=== PATIENT | female | born 1960 | race Caucasian/White ===

== ENCOUNTER 2020-03-18 18:05 | Inpatient (IN) | payer MEDICAID ==
[~2020-03-18] VITALS: Ht 162.6 cm; Wt 66.3 kg
--- NOTE | 2020-03-18 18:10 | NUR ---
PT SENT FROM [facility] FOR 2 DAY HX OF DIZZINESS AND WEAKNESS AFTER WOUND TO RIGHT HEEL HAD INCISION AND DRAINAGE ON MONDAY PER PT. PT ON ANTIBIOTICS THEN GOT RASH TO LEFT ARM. 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 PT ALSO RECEIVED 300 OF NS BY [employer] FOR REFRACTORY HYPOTENSION. DR. SAUNDERS AT BEDSIDE. PT ON MONITOR. PT REPORTS COUGH AND NASAL CONGESTION FOR ABOUT TWO DAYS BUT PT UNSURE OF EXACTLY WHEN HER RESPIRATORY SYMPTOMS STARTED. PT REPORTS, "LATELY, IT HAS BEEN A BLUR."
[2020-03-18] MEDS ORDERED: NOREPINEPHRINE 8 MG in SODIUM CHLORIDE 0.9% 242 ML IV PRN (18:27)
--- NOTE | 2020-03-18 18:30 | NUR ---
REPORT TO GUILLERMO DUDLEY AT BEDSIDE. PT MOVED TO TRAUMA 4 FOR CENTRAL LINE AND PRESSORS.
[2020-03-18] MEDS ORDERED: [UNRECOGNIZED DRUG - REMARK] PO (18:46)
--- NOTE | 2020-03-18 19:52 | NUR ---
pt resting comfortably in bed. pt remains axox4. levophed running per aug. pto ct now
--- NOTE | 2020-03-18 20:54 | NUR ---
PT RESTING COMFORTABLY AT THIS TIME. NO WANT OR NEEDS EXPRESSED. URINE OUTPUT OF STAY IS 500 ML
[2020-03-18 21:15] LABS: MICROSCOPIC NOT IND
--- NOTE | 2020-03-18 21:48 | NUR ---
IN ROOM TO START CENTRAL LINE. CONSENT SIGNED
[2020-03-18] MEDS ORDERED: BISACODYL 10 MG SUPP PR PRN (22:00)
[2020-03-18] MEDS ORDERED: ONDANSETRON ODT 4 MG PO PRN (22:00)
[2020-03-18] MEDS ORDERED: morphine SULFATE 10 MG/ML, 1ML IVPush PRN (22:00)
[2020-03-18] MEDS ORDERED: DOCUSATE 100 MG CAPSULE PO PRN (22:00)
[2020-03-18] MEDS ORDERED: POLYETHYLENE GLYCOL 17 GM PACKET PO PRN (22:00)
[2020-03-18] MEDS ORDERED: OXYcodone IR 5MG TABLET PO PRN (22:00)
[2020-03-18] MEDS: LACTATED RINGERS 1,000 ML IV SCH ×2 (22:00→22:30)
[2020-03-18] MEDS ORDERED: ONDANSETRON 2MG/ML, 2ML IVPush PRN (22:00)
[2020-03-18] MEDS ORDERED: PROMETHAZINE 25 MG/ML, 1ML IM PRN (22:00)
--- NOTE | 2020-03-18 22:05 | NUR ---
Note narda in EDM - 03/18/20 at 2206 by KENNY REPORT OF PT FROM LUIS ENRIQUE MARTÍNEZ AT AND ASSUMING CARE OF PT AT THIS TIME. PT IS SLEEPING IN [facility] AT THIS TIME; JANNETHN. PT VSS AT THIS TIME. PT HAS CALL LIGHT WITHIN REACH.
--- NOTE | 2020-03-18 22:06 | NUR ---
REPORT OF PT FROM LUIS ENRIQUE MARTÍNEZ AT AND ASSUMING CARE OF PT AT THIS TIME. PT IS SLEEPING IN [facility] AT THIS TIME; JANNETHN. PT VSS AT THIS TIME. PT HAS CALL LIGHT WITHIN REACH.
[2020-03-18] MEDS ORDERED: VANCOMYCIN PER PHARMACY MC PRN (22:30)
[2020-03-18] MEDS ORDERED: VANCOMYCIN PMX 1GM/200ML 200 ML IV ONE (22:30)
[2020-03-18] MEDS ORDERED: CEFTRIAXONE PMX 2GM/50ML 50 ML ONE (22:52)
--- NOTE | 2020-03-18 22:53 | NUR ---
IV FLUIDS INITIATED PER AUG. PT LEVOPHED DRIP MOVED TO CENTRAL LINE AFTER XRAY VERIFICATION OF CENTRAL LINE IN SVC. AWAITING LAB FOR BC X 2 PRIOR TO ABX ADMINISTRATION. PT SLEEPING IN [facility] AT THIS TIME WITH STABLE VS AND CALL LIGHT WITHIN REACH.
[2020-03-18] MEDS: CEFTRIAXONE PMX 2GM/50ML 50 ML IV SCH (23:08)
--- NOTE | 2020-03-18 23:08 | NUR ---
BLOOD CULTURES X 2 DRAWN BY LAB AT THIS TIME. IV ANTIBIOTICS INITIATED PER AUG. PT RESTING COMFORTABLY IN [facility] AT THIS TIME;
[2020-03-18 23:22] LABS: HCT (SEDRATE) 34.7 % (34.6-47.8)
[2020-03-18 23:45] LABS: C-REACTIVE PROTEIN, QUANT 5.8 mg/dL (0.02-0.49); FREE T4 (FREE THYROXINE) 0.86 ng/dL (0.76-1.46)
--- NOTE | 2020-03-19 00:18 | NUR ---
PT SLEEPING IN [facility] AT THIS TIME; NADElizabeth. VSS AND UPDATED IN EMR AT THIS TIME.
--- NOTE | 2020-03-19 01:30 | NUR ---
BREAK RN: REPORT FROM RUBY BETTS RESTING IN GURNEY WITH EYES CLOSED, APPEARS COMFORTABLE WITH NADN, BREATHING EQUAL AND UNLABORED, AND VSS AT THIS TIME
--- NOTE | 2020-03-19 02:07 | NUR ---
PT VS UPDATED IN EMR AT THIS TIME. PT VSS. PT IS SLEEPING IN [facility] AT THIS TIME; NADN. CALL LIGHT IS WITHIN REACH OF PT.
--- NOTE | 2020-03-19 03:34 | NUR ---
PT ASSISTED TO BSC WITH 2 RN'S. PT AMBULATES WITH SLOW AND SHUFFLING GAIT TO BSC AND PRODUCED A MODERATE, FORMED BROWN STOOL. PT CHANGED INTO HOSPITAL BED AT THIS TIME AND PROVIDED 30 ML OF WATER. PT PROVIDED EXTRA WARM BLANKET PER REQUEST AND IS RESTING COMFORTABLY IN [facility] AT THIS TIME. PT DENIES ANY OTHER NEEDS AND HAS CALL LIGHT WITHIN REACH.
[2020-03-19 05:00] LABS: ALANINE AMINOTRANSFERASE 22 U/L (12-78); ALBUMIN 2.5 g/dL (3.4-5.0); ANION GAP 8 mmol/L (5-15); CALCIUM 6.8 mg/dL (8.5-10.1); CHLORIDE 117 mmol/L (98-107); CREATININE 0.85 mg/dL (0.55-1.02)
[2020-03-19 05:03] LABS: ALKALINE PHOSPHATASE 38 U/L (45-117); BILIRUBIN,TOTAL 0.3 mg/dL (0.2-1.0); CHOL/HDL RATIO 3.4; CHOLESTEROL, TOTAL 144 mg/dL (140-239); HDL CHOL % 29 % (28-40); HDL CHOLESTEROL (DIRECT) 42 mg/dL (40-60); LDL CHOLESTEROL,CALCULATED 71 mg/dL (54-169); LDL/HDL RATIO 1.7 (0.5-3.0); TOTAL PROTEIN 5.6 g/dL (6.4-8.2); TRIGLYCERIDES 154 mg/dL (50-200); VLDL CHOLESTEROL 31 mg/dL (0-25)
[2020-03-19 05:21] LABS: BASOPHILS # (AUTO) 0.02 x10^3/uL (0-0.1); BASOPHILS % (AUTO) 1 % (0-1); EOSINOPHILS % (AUTO) 0 % (1-7); LYMPHOCYTES # (AUTO) 0.67 x10^3/uL (1-3.4); LYMPHOCYTES % (AUTO) 17 % (22-44); MD SCAN; MEAN CORPUSCULAR HEMOGLOBIN 30.2 pg (27.0-34.8); MEAN CORPUSCULAR HGB CONC 32.1 g/dL (32.4-35.8); MEAN PLATELET VOLUME 9.1 fL (7.4-10.4); MONOCYTES # (AUTO) 0.09 x10^3/uL (0.2-0.8); MONOCYTES % (AUTO) 2 % (2-9); NEUTROPHILS # (AUTO) 3.17 x10^3/uL (1.8-6.8); NEUTROPHILS % (AUTO) 80 % (42-75); PLATELET COUNT 86 x10^3/uL (130-400); RED BLOOD COUNT 3.81 x10^6/uL (3.82-5.3); RED CELL DISTRIBUTION WIDTH 14.7 % (9.6-15.2)
--- NOTE | 2020-03-19 06:20 | NUR ---
PT ASLEEP IN [facility] AT THIS TIME; NADN. 1600 TOTAL ML URINE WAS EMPTIED FROM [facility] CATHETHER. PT HAD A TOTAL OF 30 ML OF ORAL FLUIDS, 1250 ML IV FLUIDS ON THIS RN'S SHIFT.
--- NOTE | 2020-03-19 06:50 | NUR ---
PT ASLEEP IN [facility] AT THIS TIME; JANNETHN. PT VSS AND UPDATED IN EMR AT THIS TIME. DIET TRAY ORDERED FOR PT BREAKFAST. NEW ORDERS RECEIVED FOR MEDS AT THIS TIME.
[2020-03-19] MEDS ORDERED: CALCIUM CHLORIDE 27.2 MEQ in SODIUM CHLORIDE 0.9% 100 ML IV ONE (07:00)
[2020-03-19] MEDS ORDERED: MAGNESIUM SULFATE PMX 2GM/50ML 50 ML IV ONE (07:00)
[2020-03-19] MEDS ORDERED: MAGNESIUM SULFATE PMX 2GM/50ML 50 ML ONE (07:09)
[2020-03-19] MEDS ORDERED: HYDROCORTISONE 100 MG INJ. ONE (07:09)
[2020-03-19] MEDS: HYDROCORTISONE 100 MG INJ. IVPush SCH ×3 (07:11→23:40)
--- NOTE | 2020-03-19 07:24 | NUR ---
REPORT OF PT TO LUIS ENRIQUE DIANE AND LUIS ENRIQUE BOLES. ALL QUESTIONS ANSWERED. PT EDUCATED ON ROOM ASSINGMENT AND VERBALIZES UNDERSTANDING.
--- NOTE | 2020-03-19 07:30 | NUR ---
CALCIUM CHLORIDE REQUESTED FROM PHARMACY. REQUESTED TO BE SENT TO CCU.
[2020-03-19] MEDS ORDERED: PHARMACOKINETIC MONITORING MC PRN (08:30)
[2020-03-19] MEDS ORDERED: VANCOMYCIN 1,500 MG in SODIUM CHLORIDE 0.9% 250 ML IV ONE (09:00)
[2020-03-19] MEDS: PANTOPRAZOLE 40 MG IV IVPush SCH (09:24)
[2020-03-19 09:33] VITALS: BP 118/71
[2020-03-19] MEDS: ACETAMINOPHEN 325 MG TABLET PO PRN (09:58)
[2020-03-19] MEDS: METRONIDAZOLE PMX 500MG/100ML 100 ML IV SCH ×2 (13:22→21:30)
[2020-03-19 17:38] LABS: CLOSTRIDIUM DIFFICILE ANTIGEN NEGATIVE; CLOSTRIDIUM DIFFICILE TOXIN NEGATIVE (Negative)
[2020-03-19 18:15] VITALS: BP 106/65
[2020-03-19] MEDS: CEFTRIAXONE PMX 2GM/50ML 50 ML IV SCH (22:38)
[2020-03-20 02:19] VITALS: BP 114/68
[2020-03-20] MEDS ORDERED: VANCOMYCIN 1,200 MG in SODIUM CHLORIDE 0.9% 250 ML IV SCH (03:00)
[2020-03-20 05:03] LABS: % IRON SATURATION 57 % (20-55); ANION GAP 9 mmol/L (5-15); CALCIUM 7.5 mg/dL (8.5-10.1); CHLORIDE 116 mmol/L (98-107); CREATININE 0.62 mg/dL (0.55-1.02); D-DIMER (DIC) 1.07 ug/mlFEU (0.00-0.52); IRON LEVEL 95 mcg/dL (50-170); PROTIME 10.6 Seconds (9.6-11.5); TOTAL IRON BINDING CAPACITY 168 mcg/dL (250-450)
[2020-03-20] MEDS: METRONIDAZOLE PMX 500MG/100ML 100 ML IV SCH ×3 (05:08→20:44)
[2020-03-20 05:30] LABS: MEAN CORPUSCULAR HEMOGLOBIN 30.8 pg (27.0-34.8); MEAN CORPUSCULAR HGB CONC 32.8 g/dL (32.4-35.8); MEAN PLATELET VOLUME 9.3 fL (7.4-10.4); PLATELET COUNT 86 x10^3/uL (130-400); RED BLOOD COUNT 3.34 x10^6/uL (3.82-5.3); RED CELL DISTRIBUTION WIDTH 15.3 % (9.6-15.2)
[2020-03-20 05:31] LABS: BASOPHILS # (AUTO) 0.01 x10^3/uL (0-0.1); BASOPHILS % (AUTO) 1 % (0-1); EOSINOPHILS % (AUTO) 0 % (1-7); LYMPHOCYTES # (AUTO) 0.67 x10^3/uL (1-3.4); LYMPHOCYTES % (AUTO) 25 % (22-44); MD SCAN; MONOCYTES # (AUTO) 0.12 x10^3/uL (0.2-0.8); MONOCYTES % (AUTO) 5 % (2-9); NEUTROPHILS # (AUTO) 1.93 x10^3/uL (1.8-6.8); NEUTROPHILS % (AUTO) 71 % (42-75)
[2020-03-20 07:04] VITALS: BP 109/72
[2020-03-20] MEDS: HYDROCORTISONE 100 MG INJ. IVPush SCH ×2 (07:09→20:43)
[2020-03-20] MEDS: PANTOPRAZOLE 40 MG IV IVPush SCH (07:30)
[2020-03-20] MEDS: LOPERAMIDE 2 MG CAPSULE PO SCH ×3 (08:00→20:43)
[2020-03-20 14:00] VITALS: BP 104/63
[2020-03-20] MEDS: VANCOMYCIN 1,200 MG in SODIUM CHLORIDE 0.9% 250 ML IV SCH (17:28)
[2020-03-20 20:37] VITALS: BP 107/68
[2020-03-20] MEDS: ACETAMINOPHEN 325 MG TABLET PO PRN (20:43)
[2020-03-20] MEDS: CEFTRIAXONE PMX 2GM/50ML 50 ML IV SCH (22:08)
[2020-03-21] MEDS: LOPERAMIDE 2 MG CAPSULE PO SCH ×4 (01:41→20:52)
[2020-03-21 01:42] VITALS: BP 116/70
[2020-03-21] MEDS: METRONIDAZOLE PMX 500MG/100ML 100 ML IV SCH (04:39)
[2020-03-21] MEDS: VANCOMYCIN 1,200 MG in SODIUM CHLORIDE 0.9% 250 ML IV SCH (05:30)
[2020-03-21 05:50] LABS: MEAN CORPUSCULAR HEMOGLOBIN 31.3 pg (27.0-34.8); MEAN CORPUSCULAR HGB CONC 33.1 g/dL (32.4-35.8); MEAN PLATELET VOLUME 9.5 fL (7.4-10.4); PLATELET COUNT 96 x10^3/uL (130-400); RED BLOOD COUNT 3.36 x10^6/uL (3.82-5.3)
[2020-03-21 05:54] LABS: CHLORIDE 119 mmol/L (98-107)
[2020-03-21 06:03] LABS: ANION GAP 7 mmol/L (5-15); CREATININE 0.56 mg/dL (0.55-1.02); VANCOMYCIN,TROUGH 13.4 mcg/mL (5.0-10.0)
[2020-03-21 06:29] LABS: BASOPHILS # (AUTO) 0.02 x10^3/uL (0-0.1); BASOPHILS % (AUTO) 1 % (0-1); EOSINOPHILS % (AUTO) 0 % (1-7); LYMPHOCYTES # (AUTO) 0.64 x10^3/uL (1-3.4); LYMPHOCYTES % (AUTO) 21 % (22-44); MD SCAN; MONOCYTES # (AUTO) 0.21 x10^3/uL (0.2-0.8); MONOCYTES % (AUTO) 7 % (2-9); NEUTROPHILS # (AUTO) 2.18 x10^3/uL (1.8-6.8); NEUTROPHILS % (AUTO) 72 % (42-75)
[2020-03-21] MEDS ORDERED: POTASSIUM CHLORIDE 20 MEQ TAB.ER.PRT PO ONE (07:00)
[2020-03-21] MEDS: PANTOPRAZOLE 40 MG IV IVPush SCH (07:58)
[2020-03-21] MEDS: HYDROCORTISONE 100 MG INJ. IVPush SCH (07:58)
[2020-03-21 09:10] VITALS: BP 112/71
[2020-03-21] MEDS ORDERED: POTASSIUM CHLORIDE 20 MEQ TAB.ER.PRT PO SCH (10:00)
[2020-03-21] MEDS: AMPICILLIN/SULBACTAM 1,500 MG in SODIUM CHLORIDE 0.9% 50 ML IV SCH ×3 (10:28→22:29)
[2020-03-21] MEDS: ENOXAPARIN 40 MG/0.4 ML SQ SCH (10:29)
[2020-03-21] MEDS: LACTATED RINGERS 1,000 ML IV SCH ×2 (11:33→20:53)
[2020-03-21 13:20] VITALS: BP 128/80
[2020-03-21 21:23] VITALS: BP 133/79
[2020-03-22 01:08] VITALS: BP 130/78
[2020-03-22] MEDS: LOPERAMIDE 2 MG CAPSULE PO SCH ×4 (02:00→21:14)
[2020-03-22] MEDS: AMPICILLIN/SULBACTAM 1,500 MG in SODIUM CHLORIDE 0.9% 50 ML IV SCH ×4 (03:45→23:08)
[2020-03-22 05:35] LABS: BASOPHILS # (AUTO) 0.02 x10^3/uL (0-0.1); BASOPHILS % (AUTO) 1 % (0-1); EOSINOPHILS # (AUTO) 0.01 x10^3/uL (0-0.4); EOSINOPHILS % (AUTO) 0 % (1-7); LYMPHOCYTES # (AUTO) 1.14 x10^3/uL (1-3.4); LYMPHOCYTES % (AUTO) 37 % (22-44); MD NO; MEAN CORPUSCULAR HEMOGLOBIN 31.2 pg (27.0-34.8); MEAN CORPUSCULAR HGB CONC 33.2 g/dL (32.4-35.8); MEAN PLATELET VOLUME 9.6 fL (7.4-10.4); MONOCYTES # (AUTO) 0.32 x10^3/uL (0.2-0.8); MONOCYTES % (AUTO) 10 % (2-9); NEUTROPHILS # (AUTO) 1.63 x10^3/uL (1.8-6.8); NEUTROPHILS % (AUTO) 52 % (42-75); PLATELET COUNT 108 x10^3/uL (130-400); RED BLOOD COUNT 3.28 x10^6/uL (3.82-5.3); RED CELL DISTRIBUTION WIDTH 14.8 % (9.6-15.2)
[2020-03-22 05:47] LABS: ALBUMIN 2.4 g/dL (3.4-5.0); ANION GAP 6 mmol/L (5-15); CALCIUM 7.9 mg/dL (8.5-10.1); CHLORIDE 119 mmol/L (98-107)
[2020-03-22 05:53] LABS: ALANINE AMINOTRANSFERASE 24 U/L (12-78); ALKALINE PHOSPHATASE 33 U/L (45-117); BILIRUBIN,TOTAL 0.3 mg/dL (0.2-1.0); CREATININE 0.62 mg/dL (0.55-1.02); TOTAL PROTEIN 5.5 g/dL (6.4-8.2)
[2020-03-22] MEDS: POTASSIUM CHLORIDE 20 MEQ TAB.ER.PRT PO SCH ×2 (09:17→17:21)
[2020-03-22 10:30] VITALS: BP 117/73
[2020-03-22] MEDS: ENOXAPARIN 40 MG/0.4 ML SQ SCH (10:49)
[2020-03-22] MEDS: LACTATED RINGERS 1,000 ML IV SCH ×2 (10:50→21:14)
[2020-03-22 14:05] VITALS: BP 136/83
[2020-03-22 19:11] LABS: ANION GAP 7 mmol/L (5-15); CALCIUM 7.8 mg/dL (8.5-10.1); CHLORIDE 118 mmol/L (98-107); CREATININE 0.69 mg/dL (0.55-1.02)
[2020-03-22 19:22] VITALS: BP 128/78
[2020-03-23 00:12] VITALS: BP 139/84
[2020-03-23] MEDS: LOPERAMIDE 2 MG CAPSULE PO SCH ×4 (04:05→23:21)
[2020-03-23] MEDS: AMPICILLIN/SULBACTAM 1,500 MG in SODIUM CHLORIDE 0.9% 50 ML IV SCH ×4 (05:04→23:21)
[2020-03-23] MEDS: LACTATED RINGERS 1,000 ML IV SCH (05:04)
[2020-03-23 06:02] LABS: MEAN CORPUSCULAR HEMOGLOBIN 30.9 pg (27.0-34.8); MEAN CORPUSCULAR HGB CONC 32.7 g/dL (32.4-35.8); MEAN PLATELET VOLUME 8.8 fL (7.4-10.4); PLATELET COUNT 123 x10^3/uL (130-400); RED BLOOD COUNT 3.47 x10^6/uL (3.82-5.3)
[2020-03-23 06:07] LABS: CHLORIDE 112 mmol/L (98-107)
[2020-03-23 06:14] LABS: ALANINE AMINOTRANSFERASE 30 U/L (12-78); ALBUMIN 2.5 g/dL (3.4-5.0); ALKALINE PHOSPHATASE 35 U/L (45-117); ANION GAP 6 mmol/L (5-15); BILIRUBIN,TOTAL 0.4 mg/dL (0.2-1.0); CALCIUM 8.1 mg/dL (8.5-10.1); CREATININE 0.58 mg/dL (0.55-1.02); TOTAL PROTEIN 5.6 g/dL (6.4-8.2)
[2020-03-23 06:35] LABS: BASOPHILS # (AUTO) 0.02 x10^3/uL (0-0.1); BASOPHILS % (AUTO) 1 % (0-1); EOSINOPHILS # (AUTO) 0.01 x10^3/uL (0-0.4); EOSINOPHILS % (AUTO) 0 % (1-7); LYMPHOCYTES # (AUTO) 0.81 x10^3/uL (1-3.4); LYMPHOCYTES % (AUTO) 30 % (22-44); MD SCAN; MONOCYTES # (AUTO) 0.19 x10^3/uL (0.2-0.8); MONOCYTES % (AUTO) 7 % (2-9); NEUTROPHILS # (AUTO) 1.66 x10^3/uL (1.8-6.8); NEUTROPHILS % (AUTO) 62 % (42-75)
[2020-03-23 07:00] VITALS: BP 130/79
[2020-03-23] MEDS: POTASSIUM CHLORIDE 20 MEQ TAB.ER.PRT PO SCH ×2 (07:58→17:25)
[2020-03-23] MEDS ORDERED: MIDAZOLAM 1 MG/ML, 5ML ONE (09:13)
[2020-03-23] MEDS ORDERED: FENTANYL PF 100 MCG/2ML ONE (09:13)
[2020-03-23] MEDS ORDERED: FLUMAZENIL 0.1 MG/1 ML, 5ML ONE (09:13)
[2020-03-23] MEDS ORDERED: NALOXONE 1 MG/ML, 2ML ONE (09:13)
[2020-03-23] MEDS: ENOXAPARIN 40 MG/0.4 ML SQ SCH (11:02)
[2020-03-23] MEDS: ACETAMINOPHEN 325 MG TABLET PO PRN (11:09)
[2020-03-23 15:00] VITALS: BP 107/67
[2020-03-23 18:54] VITALS: BP 126/75
[2020-03-24 00:05] VITALS: BP 134/73
[2020-03-24] MEDS: LOPERAMIDE 2 MG CAPSULE PO SCH ×2 (05:31→11:00)
[2020-03-24] MEDS: AMPICILLIN/SULBACTAM 1,500 MG in SODIUM CHLORIDE 0.9% 50 ML IV SCH ×2 (05:31→11:15)
[2020-03-24] MEDS: POTASSIUM CHLORIDE 20 MEQ TAB.ER.PRT PO SCH (07:36)
[2020-03-24 08:16] VITALS: BP 130/83
[2020-03-24] MEDS: ENOXAPARIN 40 MG/0.4 ML SQ SCH (11:15)
[2020-03-24] MEDS ORDERED: DOXY100T PO (12:20)
[2020-03-24] MEDS ORDERED: POTA20TA6 PO (12:20)
[2020-03-24] MEDS ORDERED: AMOX1TAB64 PO (12:20)
[2020-03-24 17:19] LABS: ANA SCREEN POSITIVE (Negative); ANA TITER MIXED
[2020-03-24 17:20] LABS: ANTI-NUCLEAR ANTIBODY PATTERN MIXED
== END 2020-03-24 15:17 | disposition home or self-care (01) | DRG 720 ==
LOC: ED 22:03 → EDIP 22:10 → CCU 03-19 07:41 → 3N 03-19 18:14
PROVIDERS: ADMIT Internal Medicine; ATTEND Internal Medicine
PROC: 02HV33Z Insertion of Infusion Device into Superior Vena Cava, Percutaneous Approach (ICD-10-PCS; 2020-03-18)
PROC: 07DR3ZX Extraction of Iliac Bone Marrow, Percutaneous Approach, Diagnostic (ICD-10-PCS; principal; 2020-03-23)
DX: A41.9 Sepsis, unspecified organism (principal); E27.40 Unspecified adrenocortical insufficiency; E46 Unspecified protein-calorie malnutrition; E83.42 Hypomagnesemia; E87.0 Hyperosmolality and hypernatremia; E87.2 Acidosis; E87.6 Hypokalemia; F17.210 Nicotine dependence, cigarettes, uncomplicated; R65.21 Severe sepsis with septic shock; F32.9 Major depressive disorder, single episode, unspecified; F43.20 Adjustment disorder, unspecified; G93.41 Metabolic encephalopathy; I31.3 Pericardial effusion (noninflammatory); J42 Unspecified chronic bronchitis; K21.9 Gastro-esophageal reflux disease without esophagitis; K52.9 Noninfective gastroenteritis and colitis, unspecified; L40.9 Psoriasis, unspecified; N17.0 Acute kidney failure with tubular necrosis; S91.331A Puncture wound without foreign body, right foot, initial encounter; D70.9 Neutropenia, unspecified; X58.XXXA Exposure to other specified factors, initial encounter
CPT/HCPCS: 36415; 38222; 70450; 71045; 76705; 77012; 80048; 80053; 80061; 80202; 81003; 82533; 82728; 83036; 83540; 83550; 83615; 83735; 84100; 84132; 84145; 84439; 84443; 85025; 85049; 85060; 85097; 85379; 85384; 85610; 85651; 85730; 86038; 86039; 86140; 87040; 87081; 87324; 88237; 88264; 88280; 88305; 88311; 88313; 93306; 99156; 99157; 99285; G0378; J0696; J1650; J2250; J2405; J3010; J3370; C9113; J0295; J1720; J2310; J3475; J7050; J7120